=== PATIENT | male | born 1945 | race African-American/Black ===

== ENCOUNTER → 2017-05-18 | Outpatient (CLI) | payer OTHER ==
[~2017-05-18] MED LIST: AMLO-110 PO; AMLO-114 PO; ASPI81TA28 PO; GLIP-197 PO; METF1TAB53 PO; NAPR-1169 PO
--- NOTE | 2017-05-18 13:35 | DIAGNOSTIC IMAGING REPORT ---
Ultrasound guided fine-needle aspiration GUIDANCE NEEDLE PLACEMENT CLINICAL HISTORY: Lymphadenopathy, neck MASSES neck nodules TECHNIQUE: Ultrasound guidance COMPARISON STUDY: 05/08/2017 FINDINGS: Following description of procedure and informed consent, a total of 5 passes with 25 and 22-gauge needles was performed. There are complications. Pathology is pending. IMPRESSION: Fine-needle aspiration x5 soft tissue neck nodules. No complications. Electronically signed by: Jareth Weston M.D. 05/18/2017 1:33 PM Dictated Date/Time: 05/18/2017 1:30 PM
== END | disposition home or self-care (01) ==
LOC: C.ULTR 11:10
PROVIDERS: ATTEND Family Medicine
DX: R59.1 Generalized enlarged lymph nodes (principal)

== ENCOUNTER → 2017-07-10 | Day surgery (SDC) | payer OTHER ==
[2017-07-06 12:50] VITALS: BMI 32.0
[~2017-07-10] VITALS: Ht 167.6 cm; Wt 90.9 kg
[~2017-07-10] MED LIST changes: -AMLO-110 PO; +ATROPINE SULFATE 0.1 MG/ML 5ML SYR IV PRN; +BACITRACIN OINT 15 GM TUBE ONE; +CEFAZOLIN SOD 1 GM VIAL ONE; +DEXAMETHASONE SOD INJ 4 MG/ML VIAL ONE; +ESMOLOL HCL 10 MG/ML 10 ML VIAL ONE; +EpHEDrine SULFATE INJ 50 MG/ML AMP IV PRN; +FENTANYL CITRATE INJ 50 MCG/1 ML 2 ML VIAL IV PRN; +FENTANYL CITRATE INJ 50 MCG/1 ML 2 ML VIAL ONE; +GLYCOPYRROLATE INJ 0.2 MG/ML VIAL ONE; +HYDROmorphone INJ 1 MG/ML SYR IV PRN; +HydrALAZINE HCL 20 MG/ML VIAL ONE; +LABETALOL HCL IV 5 MG/ML 20ML IV ONE; +LABETALOL HCL IV 5 MG/ML 20ML IV PRN; +LACTATED RINGER'S 1000ML 1,000 ML IV SCH; +LIDOCAINE HCL 2% 2 ML VIAL (20MG/ML) ONE; +LIDOCAINE/EPINEPHRINE 1% 20 ML VIAL ONE; +MEPERIDINE HCL 25 MG/ML CARP IV PRN; +MIDAZOLAM HCL 1 MG/ML 2ML VIAL ONE; +NEOSTIGMINE METHYLSULFATE 5 MG/5 ML SYR ONE; +ONDANSETRON INJ 2 MG/ML 2 ML VIAL IV PRN; +ONDANSETRON INJ 2 MG/ML 2 ML VIAL ONE; +PROPOFOL IV EMULSION 10 MG/ML 20 ML VIAL IV ONE; +ROCURONIUM BROMIDE 10 MG/ML 5 ML VIAL IV ONE; +SURGICEL FIBRILLAR HEMOSTAT 1 X 2IN TOP ONE
--- NOTE | 2017-07-10 08:04 | Discharge Instructions ---
Discharge Instructions Date of Service Jul 10, 2017. 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 . Instructions / Follow-Up Instructions / Follow-Up Please take pain medication as directed and if pain is well controlled the patient is permitted to take Tylenol ONLY. Current Hospital Diet Patient's current hospital diet: Discharge Diet Recommended Diet: Regular Diet Pending Studies Studies pending at discharge: no Medical Emergencies . Who to Call and When: Medical Emergencies: If at any time you feel your situation is an emergency, please call 911 immediately. . Non-Emergent Contact Non-Emergency issues call your: Primary Care Provider . . "Provider Documentation" section prepared by Padmini Jorgensen. . VTE Core Measure Inpt VTE Proph given/why not?: SCD's
--- NOTE | 2017-07-10 08:19 | History & Physical Bridge Note ---
H&P Re-Evaluation Bridge Note: I have examined the patient, reviewed the History & Physical and in the interval since the performance of the History & Physical I have noted the following changes of clinical significance: His BP is elevated. He related that my office told him to stop his BP meds one week before surgery. My nurses actually instructed him to use no ANSAIDS or any other medicine that could thin the blood for one week before surgery.
[2017-07-10 08:20] VITALS: BP_SYST 178; BP_SYST 209; BP_SYST 228; BP_DIAS 126; BP_DIAS 136; BP_DIAS 96; PULSE 111; TEMP 37.2; O2SAT 99; Ht 167.6 cm; Wt 90.9 kg
--- NOTE | 2017-07-10 11:46 | [facility] Post Operative Brief Note ---
Immediate Operative Summary Operative Date Jul 10, 2017. Pre-Operative Diagnosis Lymphoma Post-Operative Diagnosis Same as preoperative Procedure(s) Performed Left Neck Node Biopsy Surgeon Dr. Kendrick Tripp Gynaecological Oncologist Surgeon(s) Padmini Jorgensen PA-C Estimated Blood Loss 25mL Findings Multiple hard and pathologic appearing nodes in the left submandibular triangle. Fluids (cc crystalloids) 1,300 ml Specimens FRESH: 1.) Left Submandibular [place] Lymph Node: left OR6 @ 1105 Complication(s) None Disposition Recovery Room / PACU
--- NOTE | 2017-07-10 12:05 | OPERATIVE REPORT ---
DATE OF OPERATION: 07/10/2017 PREOPERATIVE DIAGNOSIS: Lymphoma. POSTOPERATIVE DIAGNOSIS: Lymphoma. PROCEDURE PERFORMED: Left neck node biopsy. SURGEON: Dr. Tripp. MILITARY PROFESSIONAL: Padmini Jorgensen PA-C. ESTIMATED BLOOD LOSS: 25 mL. IV FLUIDS: 1300 mL of crystalloid. SPECIMENS: Left submandibular triangle lymph node sent fresh for lymphoma protocol. COMPLICATIONS: None. DISPOSITION: The patient went to the operating room following uneventful extubation without difficulty. Sponge and needle count was correct at the end of the case. DESCRIPTION OF THE PROCEDURE: The patient had an uneventful endotracheal intubation. After this, shoulder roll was placed. The head was supported by a donut. The planned incision site, which had been drawn in the preoperative area, was injected with 15 mL of 1% lidocaine 1:100,000 parts epinephrine. After this, he was prepped and draped in standard fashion. An incision was made in the planned incision line using a 10 blade. This went all the way down through skin, subcutaneous fat, and platysma. The inferior aspect of the submandibular gland was identified and the superior and vesting fascia of the neck was elevated off the submandibular gland and retracted superiorly to keep the marginal mandibular branch of the facial nerve out of harms way. Palpation allowed differentiation between the submandibular gland and pathologic node in the submandibular triangle. Representing a node was identified and using LigaSure device and 0 silk in a pursestring fashion to remove this node. The marginal mandibular branch of the facial nerve was identified visually and held out of harms way throughout this dissection. Any nuisance bleeding was stopped with bipolar electrocautery and a setting of 20. The wound was copiously irrigated with saline. After this, fibrillar was placed deep in the wound bed. There was no bleeding deep so the platysma was closed using running 4-0 chromic suture. Excessive subcutaneous fat was removed with a #10 blade and pick-ups. Bleeding was stopped with electrocautery. Dermis was reapproximated using 4-0 chromic in a simple inverted buried fashion. Skin was closed with interrupted 5-0 nylon. Running 6-0 nylon was then used after that. Wound was cleaned with hydrogen peroxide followed by alcohol and then dried. Bacitracin ointment followed by Telfa and Tegaderm was applied. The patient was allowed to wake up on his own and transported to recovery in no apparent distress. I attest to the content of the Intraoperative Record and any orders documented therein. Any exception s are noted below.
[2017-07-10 12:35] VITALS: BP 127/67; PULSE 87; TEMP 37.3; O2SAT 93
[2017-07-10 13:00] VITALS: BP 140/75; PULSE 95; TEMP 37.1; O2SAT 93
[2017-07-10 13:36] VITALS: BP 140/75; PULSE 94; TEMP 36.7; O2SAT 94
--- NOTE | 2017-07-10 14:01 | Anesthesiology Progress Note ---
Anesthesia Post Op Note Date & Time Jul 10, 2017 at 14:01 Vital Signs Pain Intensity: 0 Vital Signs Past 12 Hours Date Time Temp Pulse Resp B/P (MAP) Pulse Ox O2 Delivery O2 Flow Rate FiO2 07/10/17 13:36 36.7 94 18 140/75 94 Room Air 07/10/17 13:00 37.1 95 18 140/75 93 Room Air 07/10/17 12:35 37.3 87 18 127/67 93 Room Air 07/10/17 12:25 36.6 84 16 120/69 93 Room Air 07/10/17 12:15 36.6 84 16 114/67 92 Room Air 07/10/17 12:05 81 16 122/75 93 Mask 5 07/10/17 11:55 82 16 124/75 95 Mask 5 07/10/17 11:48 36.2 83 16 125/72 92 Mask 5 07/10/17 08:20 37.2 111 20 228/136 (166) 99 Room Air 178/126 (143) 209/96 (133) Notes Mental Status: alert / awake / arousable, participated in evaluation Pt Amnestic to Procedure: Yes Nausea / Vomiting: adequately controlled Pain: adequately controlled Airway Patency, RR, SpO2: stable & adequate BP & HR: stable & adequate Hydration State: stable & adequate Anesthetic Complications: no major complications apparent
== END | disposition home or self-care (01) ==
LOC: C.ACU 08:02
PROVIDERS: ATTEND Otolaryngology
DX: C82.11 Follicular lymphoma grade II, lymph nodes of head, face, and neck (principal); I45.10 Unspecified right bundle-branch block; E11.22 Type 2 diabetes mellitus with diabetic chronic kidney disease; I12.9 Hypertensive chronic kidney disease with stage 1 through stage 4 chronic kidney disease, or unspecified chronic kidney disease; N18.3 Chronic kidney disease, stage 3 (moderate); E11.3399 Type 2 diabetes mellitus with moderate nonproliferative diabetic retinopathy without macular edema, unspecified eye; E78.1 Pure hyperglyceridemia; M50.30 Other cervical disc degeneration, unspecified cervical region; M10.9 Gout, unspecified; E66.01 Morbid (severe) obesity due to excess calories; Z68.41 Body mass index [BMI] 40.0-44.9, adult; Z79.82 Long term (current) use of aspirin; Z79.84 Long term (current) use of oral hypoglycemic drugs; Z79.899 Other long term (current) drug therapy

== ENCOUNTER 2024-12-12 05:01 | Observation (INO) ==
--- NOTE | 2024-11-13 13:28 | PAT Medication Instructions ---
Medication Instructions Date of Service November 13, 2024 Home Medications losartan 100 mg tablet 100 mg PO QAM amlodipine 10 mg tablet 10 mg PO QAM atorvastatin 40 mg tablet 40 mg PO QAM glipizide 10 mg tablet 10 mg PO QAM metoprolol succinate 25 mg tablet,extended release 24 hr 25 mg PO QAM allopurinol 100 mg tablet 100 mg PO BID PRN gout colchicine 0.6 mg capsule 0.6 mg PO BID PRN gout mecobalamin (vitamin B12) 1,000 mcg lozenges 1,000 mcg PO DAILY DO NOT take the morning of surgery losartan 100 mg tablet 100 mg PO QAM glipizide 10 mg tablet 10 mg PO QAM colchicine 0.6 mg capsule 0.6 mg PO BID PRN gout mecobalamin (vitamin B12) 1,000 mcg lozenges 1,000 mcg PO DAILY Take morning of surgery With a small sip of water, OTHERWISE NOTHING TO EAT OR DRINK AFTER MIDNIGHT: amlodipine 10 mg tablet 10 mg PO QAM atorvastatin 40 mg tablet 40 mg PO QAM metoprolol succinate 25 mg tablet,extended release 24 hr 25 mg PO QAM allopurinol 100 mg tablet 100 mg PO BID PRN gout (if needed) Take evening before surgery allopurinol 100 mg tablet 100 mg PO BID PRN gout (if needed) colchicine 0.6 mg capsule 0.6 mg PO BID PRN gout (if needed) Other Notes If you have any questions please call us at [phone] or [phone] or [phone] or [phone]
--- NOTE | 2024-11-24 10:35 | Anesthesiology Consultation ---
Date of Service November 24, 2024 Assessment & Plan (1) Encounter for pre-operative examination: - check BSG am DOS. - Case discussed in detail with Dr. Niño who advised patient is acceptable to proceed. - Outpatient joint assessment: Patient is currently scheduled for inpatient pathway. If re-evaluated and patient/surgeon requests outpatient pathway, patient is not a candidate for outpatient joint program from anesthesia standpoint. Chart Review Chart Review: Acceptable Risk for Surgery and Patient seen in Pre Admission Testing Teaching & Discussion Pre-Anesthesia Teaching/Discussion Notes: Instructed NPO after midnight before surgery, except medications with 15 cc of water. Medication instructions provided according to the PAT guidelines. History Surgery Operation Date: 12/12/24 07:00 Proposed Procedures p Right Total Hip Arthroplasty Anterior - Chapin Brownlee DO Height/Weight Height: 5 ft 5 in Weight: 116.2 kg Allergies Allergy/AdvReac Type Severity Reaction Status Date / Time No Known Allergies Allergy Verified 11/10/24 07:31 Medications Home Medications Medication Instructions Recorded Confirmed Last Taken losartan 100 mg tablet 100 mg PO QAM 12/30/20 11/10/24 03/12/22 amlodipine 10 mg tablet 10 mg PO QAM 03/13/22 11/10/24 03/12/22 atorvastatin 40 mg tablet 40 mg PO QAM 03/13/22 11/10/24 03/12/22 glipizide 10 mg tablet 10 mg PO QAM 03/13/22 11/10/24 03/12/22 metoprolol succinate 25 mg 25 mg PO QAM 03/13/22 11/10/24 03/12/22 tablet,extended release 24 hr allopurinol 100 mg tablet 100 mg PO BID PRN gout 11/23/22 11/10/24 Unknown colchicine 0.6 mg capsule 0.6 mg PO BID PRN gout 11/23/22 11/10/24 Unknown mecobalamin (vitamin B12) 1,000 1,000 mcg PO DAILY 11/23/22 11/10/24 Unknown mcg lozenges cholecalciferol (vitamin D3) 25 25 mcg PO DAILY 11/24/24 11/24/24 Unknown mcg (1,000 unit) tablet empagliflozin 25 mg tablet 25 mg PO QAM 11/24/24 11/24/24 Unknown hydrochlorothiazide 12.5 mg tablet mg PO QAM 11/24/24 Unknown Additional Notes: Patient was instructed and it was written on provided medication instructions to not take Vitamin D or hydrochlorothiazide the morning of surgery and that empagliflozin needs stopped 3 days before surgery. He verbalized understanding a nd agreement, denied additional medications, questions or concerns. Past Medical History Medical History (Updated 11/25/24 @ 08:51 by Virginia Devlin PA-C) CAD (coronary artery disease) entered into [facility] EMR 08/2023 with PCP notation "continue medical management" [facility] cardiology pre-op in 2017 felt septal infarct on EKG was false positive "no known CAD"; PET scan in 2017 reported "coronary atherosclerosis" Carpal tunnel syndrome Left side - no surgery CKD (chronic kidney disease) stage 3, GFR 30-59 ml/min stage 3b-4 per [facility] nephrology DDD (degenerative disc disease) Diabetes NIDDM Diabetic retinopathy History of B-cell lymphoma Initial diagnosis 04/2017 Recurrence 12/08/20 - Deep excisional biopsy of left cervical LN Dr. 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 Exercise / Class Metabolic Activity III < 4 Walking/Shop/Light housework (ambulates with rolling walker, denies [address] st discomfort or shortness of breath with usual activities) Past Family History Family History Father , 79yo Stroke Hypertension Mother , 45yo Myocardial infarction Sister Stroke Brother Diabetes Diabetic retinopathy Brother Seizure Alcohol abuse led to seizure - no one present - Brother MVA (motor vehicle accident) Brother Overdose Son No problems noted. Daughter No problems noted. Past Surgical History Surgical History History of esophagogastroduodenoscopy (EGD) History of surgery (1989) Repair/graft achilles tendon - Left side History of surgery (2021) x2 for lymphoma, "cleaned out the fluid on the left side of my neck"- once at [facility] and once at [facility]- followed by xrt Hx of colonoscopy Past Anesthesia History No Hx of Anesthesia Complications and No Family Hx of Anesthesia Complications History of PONV No Hx of PONV and No Hx of Motion Sickness Social History Smoking Status: Never smoker Do You Dip or Chew Tobacco: No Hx Alcohol Use: Yes alcohol intake frequency: holidays/special occasions only Hx Substance Use: No substance use type: does not use Review of Systems Patient denies chest pain, shortness of breath, dyspnea on exertion, snoring, witnessed apneas, reflux, fever, chills, cough, wheezing, or palpitations. Physical Exam Vital Signs Vitals BP 138/75 P 69 TEMP 97.9 SP02 98% on RA RESP 18 Physical Patient resting comfortably in chair in no acute distress, alert and oriented, responding appropriately throughout visit Full cervical extension range of motion without pain TMD 3.5 finger breadths Mallampati Score 3 Dentition: intact, denies chipped or loose teeth, caps/crowns, implants or bridges Lungs: normal respiratory effort. Good air movement, clear throughout to auscultation, no adventitious breath sounds Cardiac: regular rate and rhythm, no murmurs noted Carotid arteries: negative bruit bilat Lab Results Anesthesia Preop Results Results Anesthesia Widget: WBC 7.25 K/ul (4.8-10.8) 11/24/24 Hgb 13.8 g/dl (14.0-18.0) L 11/24/24 Hct 43.1 % (42.0-52.0) 11/24/24 Plt 219 K/uL (130-400) 11/24/24 Na 137 mmol/L (136-145) 11/24/24 K 4.0 mmol/L (3.5-5.1) 11/24/24 Cl 104 mmol/L (98-107) 11/24/24 CO2 22 mmol/L (21-32) 11/24/24 BUN 40 mg/dl (6-23) H 11/24/24 Creat 2.05 mg/dl (0.6-1.4) H 11/24/24 Glucose Level 195 mg/dl (70-99(Fasting)) H 11/24/24 PT 11.0 Seconds (9.0-12.0) 11/24/24 PTT 27 Seconds (21-31) 11/24/24 INR 1.0 (0.9-1.1) 11/24/24 HA1c 6.8 % (4.5-5.6) H 11/24/24 Blood Type O Positive 11/24/24 Antibody Screen NEGATIVE 11/24/24 Testing Laboratory Results Creatinine 2.2 07/2024, followed by [facility] nephrology Electrocardiogram Date: 11/24/24 Sinus rhythm with PACs, rate 93 bpm Left axis deviation RBBB Chest X-Ray Date: 11/24/24 No acute findings.
--- NOTE | 2024-12-11 13:14 | History & Physical Report ---
Date of Service December 11, 2024 Assessment & Plan (1) Osteoarthritis of right hip: We will proceed with a right anterior total of arthroplasty. Postoperatively he will be started on aspirin for DVT prophylaxis and kept overnight hospital for postop medical management. He plans to have the hospital set up home health for discharge. History of Present Illness Chief Complaint: Osteoarthritis of the right hip. Primary Care Provider: Chip Perez MD Shawn is a pleasant 79-year-old male who has been dealing with chronic increasing right hip and groin pain. He has had prior x-rays that have shown advanced arthritis of his right hip. He has been trying to deal with it and treat it conservatively, but unfortunately he continues to have a lot of pain. He has elected proceed with a right anterior total of arthroplasty. . Allergies Allergy/AdvReac Type Severity Reaction Status Date / Time No Known Allergies Allergy Verified 11/28/24 09:15 Home Medications Medication Instructions Recorded Confirmed Type losartan 100 mg tablet 100 mg PO QAM 12/30/20 11/28/24 History amlodipine 10 mg tablet 10 mg PO QAM 03/13/22 11/28/24 History atorvastatin 40 mg tablet 40 mg PO QAM 03/13/22 11/28/24 History glipizide 10 mg tablet 10 mg PO QAM 03/13/22 11/28/24 History metoprolol succinate 25 mg 25 mg PO QAM 03/13/22 11/28/24 History tablet,extended release 24 hr allopurinol 100 mg tablet 100 mg PO BID PRN gout 11/23/22 11/28/24 History colchicine 0.6 mg capsule 0.6 mg PO BID PRN gout 11/23/22 11/28/24 History mecobalamin (vitamin B12) 1,000 1,000 mcg PO DAILY 11/23/22 11/28/24 History mcg lozenges cholecalciferol (vitamin D3) 25 25 mcg PO DAILY 11/24/24 11/28/24 History mcg (1,000 unit) tablet empagliflozin 25 mg tablet 25 mg PO QAM 11/24/24 11/28/24 History hydrochlorothiazide 12.5 mg tablet mg PO QAM 11/24/24 11/28/24 History 3-in-1 Commode #1 ea 12/02/24 Rx Past Med/Surg History Problem List Leukoplakia of oral cavity (Chronic) Encounter for pre-operative examination Osteoarthritis of right hip 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 Blake at [facility] radiation therapy No current issues - follows with [facility] heme/onc Medical History CAD (coronary artery disease) entered into [facility] EMR 08/2023 with PCP notation "continue medical management" [facility] cardiology pre-op in 2017 felt septal infarct on EKG was false positive "no known CAD"; PET scan in 2017 reported "coronary atherosclerosis" CKD (chronic kidney disease) stage 3, GFR 30-59 ml/min stage 3b-4 per [facility] nephrology Leukoplakia of oral cavity Osteoarthritis of right hip History of B-cell lymphoma Initial diagnosis 04/2017 Recurrence 12/08/20 - Deep excisional biopsy of left cervical LN Dr. 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 Hypertriglyceridemia Hypertension controlled, stable per pt Diabetic retinopathy DDD (degenerative disc disease) Surgical History History of surgery (2021) x2 for lymphoma, "cleaned out the fluid on the left side of my neck"- once at [facility] and once at [place]- followed by xrt History of esophagogastroduodenoscopy (EGD) History of surgery (1989) Repair/graft achilles tendon - Left side Hx of colonoscopy Family History Father , 79yo Stroke Hypertension Mother , 45yo Myocardial infarction Sister Stroke Brother Diabetes Diabetic retinopathy Brother Seizure Alcohol abuse led to seizure - no one present - Brother MVA (motor vehicle accident) Brother Overdose Son No problems noted. Daughter No problems noted. 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 Physical Exam On physical exam of the right hip, he has decreased range of motion. He has pain with forced internal/external rotation. All of his pain is located in the groin.. Constitutional WD/WN, vitals as above Eyes PERRL, conjunctivae normal, anicteric sclerae ENMT external ear and nose normal, oropharynx normal Neck trachea midline, no thyromegaly Respiratory normal respiratory effort Cardiovascular RRR, no murmur, no edema Gastrointestinal (Abdomen) normal bowel sounds, soft, nontender, no hepatosplenomegaly Psychiatric A+Ox3, euthymic affect Results & Data Results & Data Laboratory Results . Diagnostic Findings X-rays of the right hip show advanced osteoarthritis with joint space narrowing, osteophyte formation, and bone on bone articulation PG Care Time/CCT Total # of Minutes Spent Total Time Spent with Patient: Total time spent is greater than 50% in coordination of care (as documented) at patient's floor/unit and/or counseling patient: Coding Level of Care Code None Diagnoses Osteoarthritis of right hip M16.11
[2024-12-12] MEDS: ACETAMINOPHEN 500 MG TAB PO SCH ×2 (05:43→13:36)
[2024-12-12] MEDS: FAMOTIDINE 20 MG TAB PO SCH (05:43)
[2024-12-12] MEDS: GABAPENTIN 300 MG CAP PO SCH (05:43)
[2024-12-12] MEDS: LR 60ML/HR IV SCH (05:43)
[2024-12-12] MEDS: dexAMETHasone**PF** 10 MG/ML VIAL IV SCH (05:43)
[2024-12-12] MEDS: LR 500ML BOLUS, THEN 15ML/HR IV SCH (05:43)
[2024-12-12] MEDS ORDERED: BUPIVACAINE 0.5 % 5 MG/1 ML PF 10ML VIAL ONE (06:13)
--- NOTE | 2024-12-12 06:31 | History & Physical Bridge Note ---
Date of Service December 12, 2024 History & Physical Bridge Note I have examined the patient, reviewed the History & Physical and in the interval since the performance of the History & Physical I have noted the following changes of clinical significance: no changes noted
[2024-12-12] MEDS ORDERED: fentaNYL citrate PF 100 MCG/2 ML VIAL ONE (06:40)
[2024-12-12] MEDS ORDERED: MIDAZOLAM HCL 1 MG/ML 2ML VIAL ONE (06:40)
[2024-12-12] MEDS: TRANEXAMIC ACID 1,000 MG **IV Pre-op IV SCH (06:45)
[2024-12-12] MEDS: ceFAZolin 2000MG 2,000 MG/15 ML SYR IV SCH (07:05)
[2024-12-12] MEDS ORDERED: PROPOFOL IV EMULSION 10 MG/ML 20 ML VIAL IV ONE ×2 (07:25→07:26)
[2024-12-12] MEDS: ROPIV 0.5% 246mg, Ketorolac 30mg, EPINEPHrine 0.5mg in NSS INFIL SCH (07:41)
[2024-12-12] MEDS: ORTHO JOINT ANESTHETIC ONE (07:41)
[2024-12-12] MEDS: TRANEXAMIC ACID 1,000 MG **IV Intra-op IV SCH (08:05)
--- NOTE | 2024-12-12 08:08 | Operative Report ---
PG Post Operative Report Pre & Post Diagnosis Operation Date: 12/12/24 07:00 Pre-Op Diagnosis: Right Hip Osteoarthritis Post-Op Diagnosis: Right Hip Osteoarthritis I identified the patient and participated in the time-out.: Yes Procedure Operation Date: 12/12/24 07:00 Actual Procedures p Right Total Hip Arthroplasty Anterior, Uncemented(Right) - Chapin Brownlee DO Surgeon Chapin Brownlee DO Erp Manager Topher Busch PA-C Estimated Blood Loss 250 Findings Consistent with Post-Op Diagnosis Specimens Right femoral head Description of Procedure Implants used I used a Zimmer[employer]omet total hip arthroplasty system with a size 5 high offset Avenir Complete stem, a 54 mm G7 cup with a 25mm screw, an E1 polyethylene liner, a 40 mm ceramic head with a +3.5 neck. Shawn arrived at the hospital for the above procedure. He was seen in the preoperative holding area and the operative extremity was identified and signed. He was given a spinal anesthetic, a preoperative antibiotic, and TXA. He was then taken back to the operating room and laid on the table in the supine position. He was given basic sedation. The operative leg was secured to a Puristst leg positioner. The hip was then prepped and draped in sterile fashion. A timeout was done and the patient and the operative extremity was properly identified. An anterior approach was used. Dissection was taken down through the fascia and the tensor muscle belly was retracted laterally and the rectus was retracted medially. The circumflex vessels were identified and ligated. The capsule was then incised and tagged for later repair. The femoral neck was then cut and the femoral head was removed. The acetabulum was exposed. Time was spent doing a complete circumferential labral release. Sequential reaming of the acetabulum up to a size 53 reamer was done. Final reamings were done under fluoroscopy to ensure appropriate version. A Biomet 54 mm G7 cup was then impacted into place. A single 25 mm screw was placed. The E1 polyethylene liner was then snapped into place. Surrounding soft tissues were then injected with 100 cc of an orthopedic pain control cocktail. The proximal femur was then exposed. Sequential broaching up to a size 5 broach was done. Off that broach a size 40 head with a +3.5 neck was trialed. The hip was reduced and fluoroscopic images showed anatomic alignment of the implants in acceptable length. The broach was removed. The final size 5 high offset Avenir Complete stem was then impacted into place. A ceramic 40 mm head with a +3.5 neck was then impacted onto the stem and the hip was reduced. Final fluoroscopic images showed anatomic alignment of the hip. The capsule was then closed with #1 Vicryl suture. A dilute betadyne lavage was then done for 3 minutes. The joint was then irrigated with normal saline solution. The fascia was closed with #1 PDS suture. Skin was closed with 2-0 Vicryl, killian, and a Silverlon dressing. He was then transferred to a hospital bed and taken to the post anesthesia care unit in stable condition. He tolerated the procedure well. Topher Busch PA-C, was present for the entire procedure. He was critical for patient positioning, prepping, draping, retraction exposure, wound closure and application of sterile dressing. I attest to the content of the Intraoperative Record and any orders documented therein. Any exceptions are noted below.
[2024-12-12] MEDS ORDERED: ePHEDrine sulfate 50 MG/ML AMP IV PRN (08:10)
[2024-12-12] MEDS ORDERED: ATROPINE SULFATE 0.1 MG/ML 10ML SYR IV PRN (08:10)
--- NOTE | 2024-12-12 08:42 | Fluoroscopy Report ---
FL hip RT 1V CLINICAL HISTORY: RT ANTERIOR HIP COMPARISON STUDY: None FLUOROSCOPY TIME: 13 seconds FLUOROSCOPY IMAGES: 1 EXPOSURE DOSE: 2.5 mGy FINDINGS: Fluoroscopy was provided for placement of right hip prosthesis. IMPRESSION: Intraoperative fluoroscopy. ACT 112: Negative or not required by law. Electronically signed by: Lino Carrera M.D. 12/12/2024 8:41 AM
--- NOTE | 2024-12-12 08:46 | XRay Report ---
XR hip 1V RT w pelvis CLINICAL HISTORY: IN PACU - Post Surgical COMPARISON: None FINDINGS: Right hip prosthesis shows no hardware complication. There is expected soft tissue gas. Sk in killian are present. IMPRESSION: Unremarkable postoperative exam. ACT 112: Negative or not required by law. Electronically signed by: Lino Carrera M.D. 12/12/2024 8:45 AM
--- NOTE | 2024-12-12 10:32 | Anesthesiology Progress Note ---
Date of Service December 12, 2024 Anesthesia Post Procedure Vital Signs Vital Signs: Temp Pulse Pulse Resp BP Pulse Ox O2 Del Method 12/12/24 10:10 83 17 102/50 L 92 Room Air 12/12/24 10:00 36.8 C 82 16 105/52 L 97 Room Air 12/12/24 09:50 80 18 93/62 L 96 Room Air 12/12/24 09:40 79 19 95/54 L 97 Room Air 12/12/24 09:30 77 16 96/50 L 96 Room Air 12/12/24 09:20 81 16 93/57 L 97 Room Air 12/12/24 09:10 76 16 80/57 L 97 Room Air 12/12/24 09:00 71 14 84/61 L 100 Oxymask 12/12/24 08:50 69 14 96/57 L 99 Oxymask 12/12/24 08:40 67 18 81/47 L 100 Oxymask 12/12/24 08:31 36.8 C 69 19 156/129 H 99 Oxymask 12/12/24 05:31 37 C 96 H 20 131/93 98 Room Air O2 Flow Rate 12/12/24 10:10 0 12/12/24 10:00 0 12/12/24 09:50 0 12/12/24 09:40 0 12/12/24 09:30 0 12/12/24 09:20 0 12/12/24 09:10 0 12/12/24 09:00 4 12/12/24 08:50 4 12/12/24 08:40 8 12/12/24 08:31 8 12/12/24 05:31 Transfer of Care Handoff Completed per policy Notes Mental Status: alert / awake / arousable Patient Amnestic to Procedure: Yes Nausea / Vomiting: adequately controlled Pain: adequately controlled Airway Patency, RR, SpO2: stable & adequate BP & HR: stable & adequate Hydration State: stable & adequate Neuraxial Anesthesia: was administered and sensory block is resolving Anesthetic Complications: no major complications apparent
[2024-12-12] MEDS ORDERED: bisacodyL 10 MG SUPP PR PRN (11:15)
[2024-12-12] MEDS ORDERED: allopurinoL 100 MG TAB PO PRN (11:15)
[2024-12-12] MEDS ORDERED: HYDROmorphone INJ 0.5 MG/0.5 ML SYR IV PRN (11:15)
[2024-12-12] MEDS ORDERED: NALOXONE HCL 0.4 MG/1 ML VIAL/CARP IV PRN (11:15)
[2024-12-12] MEDS ORDERED: MAGNESIUM HYDROXIDE SUSP 30 ML UDC PO PRN (11:15)
[2024-12-12] MEDS ORDERED: traMADol HCL 50 MG TABLET PO PRN (11:15)
[2024-12-12] MEDS ORDERED: PHARMACY GLYCEMIC MGMT CONSULT PRN (11:15)
[2024-12-12] MEDS ORDERED: METOCLOPRAMIDE HCL INJ 5 MG/ML 2 ML VIAL IV PRN (11:15)
[2024-12-12] MEDS ORDERED: ONDANSETRON INJ 2 MG/ML 2 ML VIAL IV PRN (11:15)
[2024-12-12] MEDS ORDERED: oxyCODONE HCL IR 5 MG TAB (IMMEDIATE RELEASE) PO PRN (11:15)
--- NOTE | 2024-12-12 12:45 | Pharmacy Report ---
Pharmacy Glycemic Short Note 2 - Date of Service December 12, 2024 - Glycemic Short BSG Results (Last 24 hours): 12/12/24 12/12/24 05:30 08:33 POC Glucose 140 H 148 H OUTPATIENT ANTIDIABETIC REGIMEN: * empagliflozin 25mg po QAM * glipizide 10mg po daily HbA1c: 6.8% on 11/24/24 ASSESSMENT: * 79 year old male admitted 12/12 for a right total hip arthroplasty (POD #0). Pharmacy was consulted for glycemic management postop. * BSG preop was 148mg/dL and BSG post op was 179mg/dL. He did receive dexamethasone 10mg iv x 1 preop, and no further steroids have been ordered. * Lantus 10 units SQ x 1 was ordered due to elevate postop BSG. Need for additional basal insulin will be reassessed tomorrow morning. * Weight based bolus insulin (using adjusted body weight) with a stress of 2 has been ordered to start with lunch today. PLAN FOR INPATIENT GLYCEMIC CONTROL: * Hold outpatient oral diabetes medications * Basal insulin * Lantus 10 units SQ x 1 today. * Bolus insulin * NovoLog per scale ACHS or Q6hrs while NPO * Goal Range: Low 110 mg/dL - High 140 mg/dL * Correction Factor: 30 mg/dL/unit * Nutritional / Prandial insulin per carb ratio of 1 unit per 10 grams CHO consumed
[2024-12-12] MEDS: glipiZIDE 5 MG TAB PO SCH (13:31)
[2024-12-12] MEDS: EMPAGLIFLOZIN 25 MG TAB PO SCH (13:31)
[2024-12-12] MEDS: ATORVASTATIN 40 MG TAB PO SCH (13:33)
[2024-12-12] MEDS: LOSARTAN POTASSIUM 50 MG TAB PO SCH (13:33)
[2024-12-12] MEDS: MULTIVITAMIN TAB PO SCH (13:33)
[2024-12-12] MEDS: KETOROLAC TROMETHAMINE 15 MG/ML VIAL IV SCH (13:36)
[2024-12-12] MEDS: DOCUSATE SODIUM 100 MG CAP PO SCH (13:37)
[2024-12-12] MEDS: INSULIN ASPART PER UNIT CHARGE SC SCH (13:45)
[2024-12-12] MEDS: LANTUS PER UNIT CHARGE SC ONE (13:47)
[2024-12-12] MEDS: ASPIRIN 81 MG ECTAB PO SCH (14:42)
[2024-12-12] MEDS: ceFAZolin 1000MG 1,000 MG/7.5 ML SYR IV SCH (15:16)
[2024-12-12] MEDS: SENNA 8.6 MG TAB PO SCH (20:41)
[2024-12-13 07:03] VITALS: BP 124/73; RESP 16; TEMP 97.3; O2SAT 99
--- NOTE | 2024-12-13 07:39 | Orthopedic Progress Note ---
Date of Service December 13, 2024 Assessment & Plan (1) Status post right hip replacement: Overall he is doing very well. He is not having much pain in the right hip. He will be seen by physical therapy today for ambulation and range of motion exercises. He is on aspirin for DVT prophylaxis. The nursing staff can change his dressing with a new Silverlon. He can be discharged to home later today. He will follow-up orthopedics in 2 weeks. Rom Escobar was seen and examined at bedside this morning. Overall he is doing very well. He is not having much pain in the right hip. He has been up and ambulating to the bathroom. He has no complaints. The dressing was reinforced last night.. Review of Systems All systems reviewed & are unremarkable except as noted in HPI & below. Physical Exam On physical examination of the right hip, the dressing is clean with the reinforce dressing over the Silverlon. His right leg is out full extension. He is neurovascular intact.. Results & Data Results & Data Laboratory Results . Diagnostic Findings Postoperative x-rays of the right hip show the prosthesis to be in anatomic alignment without any evidence of fracture, dislocation, or loosening.. PG Care Time/CCT Total # of Minutes Spent Total Time Spent with Patient: Total time spent is greater than 50% in coordination of care (as documented) at patient's floor/unit and/or counseling patient: Coding Level of Care Code 05601 Post Operative Follow-Up Diagnoses Status post right hip replacement Z96.641
--- NOTE | 2024-12-13 07:41 | Discharge Summary ---
Date of Service December 13, 2024 Admission HPI (Per Admitting) Shawn is a pleasant 79-year-old male who has been dealing with chronic increasing right hip and groin pain. He has had prior x-rays that have shown advanced arthritis of his right hip. He has been trying to deal with it and treat it conservatively, but unfortunately he continues to have a lot of pain. He has elected proceed with a right anterior total of arthroplasty. . Admission Exam (Per Admitting) On physical exam of the right hip, he has decreased range of motion. He has pain with forced internal/external rotation. All of his pain is located in the groin.. Principal Diagnosis Same as "Discharge Diagnosis" noted below under Discharge Instructions. Discharge Exam On physical examination of the right hip, the dressing is clean with the reinforce dressing over the Silverlon. His right leg is out full extension. He is neurovascular intact.. Discharge Data Procedures Performed Operation Date: 12/12/24 07:00 Actual Procedures p Right Total Hip Arthroplasty Anterior, Uncemented(Right) - Chapin Brownlee DO Ordered Studies 12/12/24 07:00 FL hip RT 1V Routine Hospital Course (1) Status post right hip replacement: On December 12, [address] [facility] and underwent a right hip replacement without complication. He had a spinal anesthetic. Postoperatively he was started on aspirin for DVT prophylaxis and transferred to the general orthopedic floors. His hospital course is uneventful. On postop day #1, his vital signs were stable and his pain was well-controlled. His dressing was reinforced. He was able to participate well with physical therapy doing ambulation and range of motion exercises. He was then discharged to home. He will follow-up orthopedics in 2 weeks. PG Care Time/CCT Total # of Minutes Spent Total Time Spent with Patient: Total time spent is greater than 50% in coordination of care (as documented) at patient's floor/unit and/or counseling patient: Discharge Plan Discharge Items Patient Disposition: Home - Self-Care Reason For Visit: Right Hip Osteoarthritis Discharge Diagnosis: Right hip replacement Activity: Per Instructions section Non-emergency contact: Surgeon Call non-emergency contact if: your wound has increased redness and your wound has increased drainage Follow-up/Referrals: Chip Perez MD [Primary Care Provider] - Diet: Regular Addtl Attending Provider Instructions: Activity and Therapy Recommendations: * If you are using [facility] then therapy will be provided at your home until they feel you have accomplished all of your goals. * If you are using [facility] then Physical Therapy will be provided until they feel you are ready to start Outpatient Physical Therapy. * If you are not using home therapy then Outpatient Physical Therapy should start about 3-5 days from your day of surgery. Therapy will last about 6-10 weeks * You were shown a series of exercises in the hospital. Do these exercises three times each day including the exercises you were shown in physical therapy. * Get up and walk several times each day.~ For the first four weeks, try not to stand or walk for more than one hour at a time. If you do stand or walk for more than one hour, you will not hurt anything, but your leg will likely swell.~~ * As you feel comfortable, you may change from the walker or crutches to a cane and~then to independent walking. Medications: * Narcotic You will likely be sent home from the hospital with a prescription for the narcotic pain medication that worked best throughout your stay. * Cefadroxil -take the antibiotic twice a day for 10 days to help prevent infection. * Aspirin Most patients will be required to take Aspirin 81mg twice a day for 6 weeks after surgery. This is obtained [id number] and a prescription is not necessary. * Other medications may be prescribed for specific circumstances. If you have any questions, please call the office at . * Resume previous home medications unless otherwise instructed TEDs/Elastic Stockings: The white elastic stockings help limit swelling and prevent blood clots from forming in your legs. The more you wear them, the more they work. Wear them for six weeks. Dressing Care: Leave the Silverlon dressing in place for 7 days. After 7 days you may remove the dressing. If the incision is not draining then you may leave the killian open to air. If there is a little bit of drainage or if the killian are getting stuck on your clothing then cover the incision with a dry dressing. The killian will be removed at your 2 week follow-up appointment. Showering: You may shower with the Silverlon dressing in place. Do not let the shower spray hit the dressing directly. Pat the Silverlon dressing dry. If the dressing becomes wet underneath, then simply remove the dressing. Keep the incision dry until you are 7 days out from the day of surgery. After 7 days you may remove the Silverlon dressing and shower with the killian exposed. Let soapy water run over the killian and pat them dry. Do not scrub or soak the incision. Diet: You may resume your previous diet. Things To Watch For: * Drainage from the incision site that occurs more than one week after your surgery. * Increased redness at the incision site. * Fever above 102 degrees Fahrenheit. * Unusual chest pain or shortness of breath. * Call [facility] at with any of the above problems Follow-Up Visit: Follow-up with Dr. Brownlee's office 2-3 weeks after your day of surgery. We will remove your killian and answer any questions. If you have any additional questions or concerns, Dr Brownlee is usually in the office at the same time and will be available An appointment was probably scheduled when you signed-up for surgery in the office. If you have any questions call Office Instructions: More detailed instructions as well as Frequently Asked Questions were provided in a folder by our office when you signed-up for surgery. Please review these instructions when you get home. If you have any further questions or concerns, please feel free to call the office at [phone] Pending Studies at Discharge: No Stand-Alone Forms: [facility], Smoking Cessation Medications and DC Order Prescriptions: New cefadroxil 500 mg capsule 500 mg PO BID 10 Days Qty: 20 0RF oxycodone 5 mg tablet 5 mg PO Q6H PRN (Reason: pain) Qty: 30 0RF aspirin 81 mg Tablet,Delayed Release (Dr/Ec) 81 mg PO BID 42 Days Qty: 84 0RF Continued losartan 100 mg tablet 100 mg PO QAM colchicine 0.6 mg capsule 0.6 mg PO BID MDD \\ PRN (Reason: gout) mecobalamin (vitamin B12) 1,000 mcg lozenge 1,000 mcg PO DAILY Rx Instructions: allow to dissolve in mouth OR may chew lightly before swallowing (DME) 3-in-1 Commode Misc See Rx Instructions .MEDSUPPLY Qty: 1 0RF Rx Instructions: As directed atorvastatin 40 mg tablet 40 mg PO QAM glipizide 10 mg tablet 10 mg PO QAM amlodipine 10 mg tablet 10 mg PO QAM metoprolol succinate 25 mg tablet extended release 24 hr 25 mg PO QAM allopurinol 100 mg tablet 100 mg PO BID PRN (Reason: gout) hydrochlorothiazide 12.5 mg tablet PO QAM cholecalciferol (vitamin D3) 25 mcg (1,000 unit) Tablet 25 mcg PO DAILY empagliflozin 25 mg Tablet 25 mg PO QAM Admission Data Admit Date/Time: 12/12/24 08:35 Attending Provider: Chapin Brownlee Admit Provider: Chapin Borwnlee Primary Care Provider: Chip Perez Other Providers: [facility]
[2024-12-13 08:04] VITALS: PULSE 65
[2024-12-13] MEDS: METOPROLOL SUCC 25MG EXT REL TAB PO SCH (09:06)
[2024-12-13] MEDS: amLODIPine BESYLATE 5 MG TAB PO SCH (09:07)
== END 2024-12-13 11:42 | disposition home or self-care (01) ==
LOC: ASU 05:01 → PACUINP 05:01 → 3E 13:03